=== PATIENT | male | born 1995 | race Caucasian/White ===

== ENCOUNTER 2019-03-21 14:51 | Emergency (ER) | payer MEDICAID ==
[~2019-03-21] VITALS: Ht 170.2 cm; Wt 92.0 kg
[2019-03-21 16:34] LABS: BASOPHILS % (AUTO) 0.5 % (0-1); EOSINOPHILS # (AUTO) 0.1 X10'3 (0-0.9); EOSINOPHILS % (AUTO) 0.7 % (0-6); HEMATOCRIT 49.7 % (42.0-52.0); HEMOGLOBIN 17.2 g/dl (14.0-17.9); LYMPHOCYTES # (AUTO) 1.1 X10'3 (1.1-4.8); MEAN CORPUSCULAR HEMOGLOBIN 33.6 PG (27.0-31.0); MEAN CORPUSCULAR HGB CONC 34.5 g/dL (33.0-36.5); MEAN CORPUSCULAR VOLUME 97.5 FL (78-98); MONOCYTES # (AUTO) 0.6 X10'3 (0-0.9); MONOCYTES % (AUTO) 6.9 % (2-12); NEUTROPHILS # (AUTO) 6.4 X10'3 (1.8-7.7); NEUTROPHILS % (AUTO) 77.9 % (42-75); PLATELET COUNT 243 X10'3 (140-440); RED CELL DISTRIBUTION WIDTH 13.9 % (11.5-14.5); WHITE BLOOD COUNT 8.2 X10'3 (4.5-11.0)
[2019-03-21 16:42] LABS: ALANINE AMINOTRANSFERASE 336 U/L (12-78); ALBUMIN 4.4 G/DL (3.4-5.0); ALKALINE PHOSPHATASE 73 IU/L (46-116); ANION GAP 15 (8-16); ASPARTATE AMINO TRANSFERASE 143 U/L (10-37); BILIRUBIN,TOTAL 0.4 MG/DL (0.1-1.0); BLOOD UREA NITROGEN 9 MG/DL (7-18); BUN/CREATININE RATIO 9.3 (5.4-32.0); CALCIUM 9.1 MG/DL (8.5-10.1); CHLORIDE 106 MMOL/L (99-107); CREATININE 0.97 MG/DL (0.60-1.10); GLUCOSE 109 MG/DL (70-104); LIPASE 521 U/L (73-393); MAGNESIUM 2.1 MG/DL (1.5-2.4); POTASSIUM 4.1 MMOL/L (3.5-5.1); SODIUM 144 MMOL/L (135-145); TOTAL CARBON DIOXIDE 23.5 MMOL/L (24-32); TOTAL PROTEIN 8.6 G/DL (6.4-8.2); eGFR > 90 ML/MIN
[2019-03-21 17:49] VITALS: BP 144/91
== END 2019-03-21 17:51 | disposition home or self-care (01) ==
LOC: ER 14:52
DX: K85.20 Alcohol induced acute pancreatitis without necrosis or infection (principal); I10 Essential (primary) hypertension; R10.13 Epigastric pain; F17.200 Nicotine dependence, unspecified, uncomplicated
CPT/HCPCS: 36415; 71045; 80053; 83690; 83735; 84484; 85025; 93005; 99284

== ENCOUNTER 2019-03-22 10:13 | Emergency (ER) | payer MEDICAID | END 2019-03-22 10:26 | disposition left against medical advice (07) | LOC: ER 10:13 | DX: Z00.00 Encounter for general adult medical examination without abnormal findings (principal); Z53.21 Procedure and treatment not carried out due to patient leaving prior to being seen by health care provider ==

== ENCOUNTER 2019-09-30 07:28 | Inpatient (IN) | payer MEDICAID ==
[~2019-09-30] VITALS: Ht 170.2 cm; Wt 86.4 kg
[2019-09-30] MEDS ORDERED: normal saline 1000ML IV soln IVB ONE (07:50)
[2019-09-30] MEDS ORDERED: ondansetron/PF 4mg/2ml inj IV ONE (07:50)
[2019-09-30] MEDS ORDERED: morphine 4 MG/ML inj SYRINge IV ONE (08:10)
[2019-09-30 08:21] LABS: BASOPHILS % (AUTO) 0.2 % (0-1); EOSINOPHILS % (AUTO) 0 % (0-6); HEMATOCRIT 48.5 % (42.0-52.0); HEMOGLOBIN 16.7 g/dl (14.0-17.9); LYMPHOCYTES # (AUTO) 0.4 X10'3 (1.1-4.8); LYMPHOCYTES % (AUTO) 2.7 % (21-51); MEAN CORPUSCULAR HEMOGLOBIN 32.4 PG (27.0-31.0); MEAN CORPUSCULAR HGB CONC 34.4 g/dL (33.0-36.5); MEAN CORPUSCULAR VOLUME 94.1 FL (78-98); MEAN PLATELET VOLUME 8.5 FL (7.4-10.4); MONOCYTES # (AUTO) 0.9 X10'3 (0-0.9); MONOCYTES % (AUTO) 5.7 % (2-12); NEUTROPHILS # (AUTO) 13.6 X10'3 (1.8-7.7); NEUTROPHILS % (AUTO) 91.4 % (42-75); PLATELET COUNT 214 X10'3 (140-440); RED BLOOD COUNT 5.15 X10'6 (4.70-6.10); RED CELL DISTRIBUTION WIDTH 14.7 % (11.5-14.5); WHITE BLOOD COUNT 14.9 X10'3 (4.5-11.0)
[2019-09-30] MEDS: morphine 4 MG/ML inj SYRINge IV PRN ×2 (08:21→08:48)
[2019-09-30 08:29] LABS: ALANINE AMINOTRANSFERASE 303 U/L (12-78); ALBUMIN 4.2 G/DL (3.4-5.0); ALBUMIN/GLOBULIN RATIO 1.1 (1.1-1.5); ALKALINE PHOSPHATASE 101 IU/L (46-116); ANION GAP 13 (8-16); ASPARTATE AMINO TRANSFERASE 134 U/L (10-37); BILIRUBIN,TOTAL 2.2 MG/DL (0.1-1.0); BLOOD UREA NITROGEN 8 MG/DL (7-18); BUN/CREATININE RATIO 8.7 (5.4-32.0); CHLORIDE 102 MMOL/L (99-107); CREATININE 0.92 MG/DL (0.60-1.10); GLUCOSE 152 MG/DL (70-104); POTASSIUM 3.9 MMOL/L (3.5-5.1); SODIUM 139 MMOL/L (135-145); TOTAL CARBON DIOXIDE 24.5 MMOL/L (24-32); eGFR > 90 ML/MIN
[2019-09-30 08:42] LABS: LIPASE 6496 U/L (73-393)
[2019-09-30] MEDS ORDERED: NO HOME MEDS (10:04)
[2019-09-30] MEDS ORDERED: fentaNYL/PF 50MCG/1 ML 2ML syringe IV ONE (10:15)
[2019-09-30] MEDS ORDERED: morphine 2 MG/ML inj. syringe IV PRN (10:25)
[2019-09-30] MEDS ORDERED: acetaminophen 325mg tablet PO PRN ×2 (10:25)
[2019-09-30] MEDS ORDERED: bisacodyl 10mg suppository rectal RC PRN (10:25)
[2019-09-30] MEDS ORDERED: magnesium Cl slow-release 64mg tablet PO PRN (10:25)
[2019-09-30] MEDS ORDERED: dextrose 50%-water 50ml dispensing syringe IV PRN (10:25)
[2019-09-30] MEDS ORDERED: mag hydrox/Alum hydrox/simeth 30ml oral suspension PO PRN (10:25)
[2019-09-30] MEDS ORDERED: diphenhydrAMINE 25mg capsule PO PRN (10:25)
[2019-09-30] MEDS ORDERED: metoclopramide 5 mg/ml inj IV PRN (10:25)
[2019-09-30] MEDS ORDERED: magnesium 2GM in 50ml NS 50 ML IV PRN (10:25)
[2019-09-30] MEDS ORDERED: thiamine 100mg/ml 2ml inj. IV ONE (10:25)
[2019-09-30] MEDS ORDERED: magnesium 4gm in 100ml NS 100 ML IV PRN (10:25)
[2019-09-30] MEDS ORDERED: acetaminophen 650mg rectal suppository RC PRN (10:25)
[2019-09-30] MEDS ORDERED: haloperidol lactate 5mg/ml inj IM PRN (10:25)
[2019-09-30] MEDS ORDERED: potassium Cl 20 mEq SR tablet PO PRN ×2 (10:25)
[2019-09-30] MEDS ORDERED: haloperidol 5mg tablet PO PRN (10:25)
[2019-09-30] MEDS ORDERED: potassium CL 10mEq/100ml bag 100 ML IV PRN (10:25)
[2019-09-30] MEDS ORDERED: magnesium hydroxide 30ml (MOM) UD suspension PO PRN (10:25)
[2019-09-30 10:35] LABS: ETHANOL < 0.010 GM/DL (0.0-0.010)
[2019-09-30] MEDS: dextrose 5%-normal saline 1,000 ML IV SCH ×2 (10:51→18:43)
[2019-09-30 10:55] LABS: URINE AMPHETAMINE SCREEN NEGATIVE (Neg); URINE BARBITUATE SCREEN NEGATIVE (Neg); URINE BENZODIAZEPINES SCREEN NEGATIVE (Neg); URINE CANNABINOID SCREEN NEGATIVE (Neg); URINE COCAINE SCREEN NEGATIVE (Neg); URINE METHADONE SCREEN NEGATIVE (Neg); URINE OPIATE SCREEN POSITIVE (Neg); URINE PHENCYCLIDINE SCREEN NEGATIVE (Neg)
[2019-09-30] MEDS ORDERED: hydrALAZINE 20mg/ml inj. IV PRN (11:15)
[2019-09-30] MEDS ORDERED: hydrALAZINE 20mg/ml inj. IV ONE (11:15)
[2019-09-30 11:30] LABS: CLARITY,URINE TURBID (Clear); COLOR,URINE AMBER (Yellow); GLUCOSE, URINE NEGATIVE (Neg); KETONES,URINE 15 mg/dl (Neg); LEUKOCYTE ESTERASE ,URINE NEGATIVE (Neg); NITRITES, URINE POSITIVE (Neg); OCCULT BLOOD,URINE NEGATIVE (Neg); PH,URINE 6.5 (4.8-8.0); PROTEIN,URINE 100 mg/dl (Neg)
--- NOTE | 2019-09-30 11:34 | NUR ---
Notified Whitney WEBB regarding patients blood pressure reduction to 143/95 mmHg in the right upper arm after hydralazine IVP of 20 mg. Stated that she would let patients primary RN know when back from break.
[2019-09-30 11:38] LABS: UA COLLECTION TYPE VOIDED
[2019-09-30 11:44] LABS: AMORPHOUS URATES 4+
[2019-09-30 11:45] LABS: MUCUS STRANDS MANY /LPF (Neg); SQUAMOUS EPITHELIAL CELL,UR FEW /LPF (FEW)
[2019-09-30 11:47] LABS: BACTERIA,URINE FEW /HPF (Neg); RBC,URINE 0-2 /HPF (0-2); WBC,URINE 0-4 /HPF (0-4)
[2019-09-30 11:55] VITALS: BP 152/88
[2019-09-30] MEDS: morphine 2 MG/ML inj. syringe IV PRN ×2 (12:45→18:47)
[2019-09-30] MEDS ORDERED: nicotine 14mg patch - 24hr TD ONE (14:20)
[2019-09-30] MEDS: HYDROcodone/acetaminophen 10/325mg tab PO PRN ×2 (15:05→21:22)
[2019-09-30] MEDS: LORazepam 2 mg/ml vial IV PRN ×2 (16:15→21:23)
--- NOTE | 2019-09-30 18:42 | NUR ---
Problems reprioritized. Patient report given, questions answered & plan of care reviewed with MIKE MCKEON RN.
--- NOTE | 2019-09-30 18:45 | NUR ---
Patient in room [facility]. I have received report from RINA WEBB and had the opportunity to ask questions and assume patient care.
[2019-09-30 19:40] VITALS: BP 151/101
[2019-09-30] MEDS: K and/or MAG REPLACEMENT MC SCH (20:00)
[2019-09-30] MEDS: heparin, porcine 5000 units/ml vial SQ SCH (21:26)
[2019-10-01] VITALS: BP 133/90
[2019-10-01] MEDS: dextrose 5%-normal saline 1,000 ML IV SCH ×3 (02:14→18:25)
[2019-10-01] MEDS: HYDROcodone/acetaminophen 10/325mg tab PO PRN ×3 (03:00→16:25)
[2019-10-01] MEDS: LORazepam 2 mg/ml vial IV PRN ×6 (03:05→20:38)
[2019-10-01 06:07] LABS: BASOPHILS % (AUTO) 0.3 % (0-1); EOSINOPHILS # (AUTO) 0.2 X10'3 (0-0.9); EOSINOPHILS % (AUTO) 2.5 % (0-6); HEMATOCRIT 43.1 % (42.0-52.0); HEMOGLOBIN 14.8 g/dl (14.0-17.9); MEAN CORPUSCULAR HEMOGLOBIN 32.9 PG (27.0-31.0); MEAN CORPUSCULAR HGB CONC 34.2 g/dL (33.0-36.5); MEAN CORPUSCULAR VOLUME 96.1 FL (78-98); MEAN PLATELET VOLUME 8.7 FL (7.4-10.4); MONOCYTES # (AUTO) 0.6 X10'3 (0-0.9); MONOCYTES % (AUTO) 7.4 % (2-12); NEUTROPHILS # (AUTO) 6.8 X10'3 (1.8-7.7); NEUTROPHILS % (AUTO) 78.8 % (42-75); PLATELET COUNT 143 X10'3 (140-440); RED BLOOD COUNT 4.49 X10'6 (4.70-6.10); RED CELL DISTRIBUTION WIDTH 15.2 % (11.5-14.5); WHITE BLOOD COUNT 8.7 X10'3 (4.5-11.0)
[2019-10-01 06:32] LABS: ALANINE AMINOTRANSFERASE 182 U/L (12-78); ALBUMIN 3.1 G/DL (3.4-5.0); ALKALINE PHOSPHATASE 66 IU/L (46-116); AMYLASE 460 U/L (25-115); ANION GAP 8 (8-16); ASPARTATE AMINO TRANSFERASE 70 U/L (10-37); BILIRUBIN,TOTAL 1.2 MG/DL (0.1-1.0); BLOOD UREA NITROGEN 5 MG/DL (7-18); CHLORIDE 107 MMOL/L (99-107); CHOL/HDL RATIO 5.3 (0.00-4.99); CHOLESTEROL 147 MG/DL (0-200); CREATININE 0.83 MG/DL (0.60-1.10); GLUCOSE 106 MG/DL (70-104); HDL CHOLESTEROL 28 MG/DL (35-60); LDL CHOLESTEROL 88 MG/DL (50-100); MAGNESIUM 1.9 MG/DL (1.5-2.4); PHOSPHORUS 2.3 MG/DL (2.3-4.5); POTASSIUM 3.4 MMOL/L (3.5-5.1); SODIUM 141 MMOL/L (135-145); TOTAL CARBON DIOXIDE 26.2 MMOL/L (24-32); TOTAL PROTEIN 6.2 G/DL (6.4-8.2); TRIGLYCERIDES 146 MG/DL (20-135); eGFR > 90 ML/MIN
--- NOTE | 2019-10-01 06:34 | NUR ---
Problems reprioritized. Patient report given, questions answered & plan of care reviewed with RINA WEBB.
--- NOTE | 2019-10-01 06:45 | NUR ---
Patient in room [facility]A. I have received report from MIKE MCKEON RN and had the opportunity to ask questions and assume patient care.
[2019-10-01 06:50] LABS: LIPASE 6297 U/L (73-393)
[2019-10-01] MEDS: morphine 2 MG/ML inj. syringe IV PRN ×3 (07:23→23:30)
[2019-10-01 07:31] VITALS: BP 154/93
[2019-10-01] MEDS: K and/or MAG REPLACEMENT MC SCH ×2 (08:00→20:00)
[2019-10-01] MEDS: nicotine 14mg patch - 24hr TD SCH (08:14)
[2019-10-01 11:00] VITALS: BP 145/75
[2019-10-01] MEDS: multivitamins, therapeutics tablet PO SCH (11:19)
[2019-10-01] MEDS: folic acid 1mg tablet PO SCH (11:19)
[2019-10-01] MEDS: heparin, porcine 5000 units/ml vial SQ SCH ×2 (11:19→19:44)
[2019-10-01] MEDS: thiamine 100mg tablet PO SCH (11:19)
[2019-10-01] MEDS: pantoprazole 40 MG vial IV SCH (11:47)
[2019-10-01] MEDS: CefTRIAXone/D5W-Rocephin 1gm 50 ML IV SCH (11:48)
--- NOTE | 2019-10-01 15:30 | NUR ---
Malnutrition Consult: Pt admit w/ acute pancreatitis secondary to etoh receiving thiamin, folic, MVI. NPO at this time okay to have ice chips. Pt unable to wake from sleep during RD visit; written pancreatitis ed w/ RD contact information left at bedside. Pt has normal strength, no edema/wounds, appears visibly well-nourished during RD visit. At this time pt does not meet minimum malnutrition criteria. Will continue to monitor. Addendum: 10/01/19 at [address] Amended: Links added.
--- NOTE | 2019-10-01 18:00 | NUR ---
Patient in room [facility]. I have received report from Laura WEBB and had the opportunity to ask questions and assume patient care.
--- NOTE | 2019-10-01 18:43 | NUR ---
Problems reprioritized. Patient report given, questions answered & plan of care reviewed with JON SAAB.
[2019-10-01 19:37] VITALS: BP 134/87
[2019-10-01] MEDS: potassium CL 10mEq/100ml bag 100 ML IV PRN ×2 (20:04→22:36)
[2019-10-02] VITALS: BP 119/80
[2019-10-02] MEDS: potassium CL 10mEq/100ml bag 100 ML IV PRN ×2 (00:04→01:48)
[2019-10-02] MEDS: LORazepam 2 mg/ml vial IV PRN ×2 (00:52→09:36)
[2019-10-02] MEDS: dextrose 5%-normal saline 1,000 ML IV SCH ×2 (05:11→12:31)
[2019-10-02 05:21] LABS: BASOPHILS % (AUTO) 0.5 % (0-1); EOSINOPHILS # (AUTO) 0.3 X10'3 (0-0.9); EOSINOPHILS % (AUTO) 4.4 % (0-6); HEMATOCRIT 41.9 % (42.0-52.0); HEMOGLOBIN 14.3 g/dl (14.0-17.9); LYMPHOCYTES # (AUTO) 1.2 X10'3 (1.1-4.8); LYMPHOCYTES % (AUTO) 18.5 % (21-51); MEAN CORPUSCULAR HEMOGLOBIN 32.7 PG (27.0-31.0); MEAN CORPUSCULAR HGB CONC 34.2 g/dL (33.0-36.5); MEAN CORPUSCULAR VOLUME 95.6 FL (78-98); MEAN PLATELET VOLUME 8.6 FL (7.4-10.4); MONOCYTES # (AUTO) 0.6 X10'3 (0-0.9); MONOCYTES % (AUTO) 9.1 % (2-12); NEUTROPHILS # (AUTO) 4.2 X10'3 (1.8-7.7); NEUTROPHILS % (AUTO) 67.5 % (42-75); PLATELET COUNT 159 X10'3 (140-440); RED BLOOD COUNT 4.38 X10'6 (4.70-6.10); RED CELL DISTRIBUTION WIDTH 14.9 % (11.5-14.5); WHITE BLOOD COUNT 6.3 X10'3 (4.5-11.0)
[2019-10-02 05:49] LABS: ALANINE AMINOTRANSFERASE 159 U/L (12-78); ALBUMIN 3.1 G/DL (3.4-5.0); ALBUMIN/GLOBULIN RATIO 0.9 (1.1-1.5); ALKALINE PHOSPHATASE 66 IU/L (46-116); AMYLASE 193 U/L (25-115); ANION GAP 7 (8-16); ASPARTATE AMINO TRANSFERASE 76 U/L (10-37); BLOOD UREA NITROGEN 5 MG/DL (7-18); BUN/CREATININE RATIO 6.2 (5.4-32.0); CALCIUM 8.6 MG/DL (8.5-10.1); CHLORIDE 104 MMOL/L (99-107); CREATININE 0.81 MG/DL (0.60-1.10); GLUCOSE 95 MG/DL (70-104); MAGNESIUM 1.9 MG/DL (1.5-2.4); PHOSPHORUS 2.9 MG/DL (2.3-4.5); POTASSIUM 3.7 MMOL/L (3.5-5.1); SODIUM 138 MMOL/L (135-145); TOTAL CARBON DIOXIDE 26.9 MMOL/L (24-32); TOTAL PROTEIN 6.7 G/DL (6.4-8.2); eGFR > 90 ML/MIN
[2019-10-02 06:23] LABS: LIPASE 2396 U/L (73-393)
--- NOTE | 2019-10-02 06:32 | NUR ---
Problems reprioritized. Patient report given, questions answered & plan of care reviewed with Leighann WEBB.
--- NOTE | 2019-10-02 06:37 | NUR ---
Patient in room [facility]. I have received report from nicolasa WEBB and had the opportunity to ask questions and assume patient care.
[2019-10-02 07:00] VITALS: BP 144/100
[2019-10-02] MEDS: CefTRIAXone/D5W-Rocephin 1gm 50 ML IV SCH (07:08)
[2019-10-02] MEDS: pantoprazole 40 MG vial IV SCH (07:08)
[2019-10-02] MEDS: thiamine 100mg tablet PO SCH (07:08)
[2019-10-02] MEDS: folic acid 1mg tablet PO SCH (07:08)
[2019-10-02] MEDS: morphine 2 MG/ML inj. syringe IV PRN ×4 (07:09→20:45)
[2019-10-02] MEDS: multivitamins, therapeutics tablet PO SCH (07:09)
[2019-10-02] MEDS: heparin, porcine 5000 units/ml vial SQ SCH ×2 (07:22→19:03)
[2019-10-02] MEDS: nicotine 14mg patch - 24hr TD SCH (07:28)
[2019-10-02 07:30] VITALS: BP 129/88
[2019-10-02] MEDS: K and/or MAG REPLACEMENT MC SCH ×2 (08:00→20:00)
[2019-10-02] MEDS: HYDROcodone/acetaminophen 10/325mg tab PO PRN ×4 (10:06→23:19)
--- NOTE | 2019-10-02 10:18 | NUR ---
patients B/P 144/100. medicated for pain rechecked, B/P 129/88
[2019-10-02] MEDS ORDERED: LORazepam 2 mg/ml vial IV PRN (10:25)
[2019-10-02 11:00] VITALS: BP 133/98
[2019-10-02] MEDS: ondansetron/PF 4mg/2ml inj IV PRN (11:45)
[2019-10-02] MEDS: LORazepam 1 MG tablet PO PRN ×2 (14:40→23:19)
--- NOTE | 2019-10-02 16:08 | NUR ---
patient commenced on clear lqd diet, felt nauseated and painful, following this. medicated and advised to go more slowly , and to stop if too painful will carefully monitor patients progress. Ativan given with effect for ETOH protocol. Morphine and norco for pain as per EMAR. with effect. Patient ambulating in hallway.
[2019-10-02 18:00] VITALS: BP 149/97
--- NOTE | 2019-10-02 18:00 | NUR ---
Patient in room [facility]. I have received report from Leighann WEBB and had the opportunity to ask questions and assume patient care.
--- NOTE | 2019-10-02 18:47 | NUR ---
Problems reprioritized. Patient report given, questions answered & plan of care reviewed with Kirsten WEBB.
--- NOTE | 2019-10-02 22:28 | NUR ---
Patient in room [facility]. I have received report from Kirsten WEBB and had the opportunity to ask questions and assume patient care.
--- NOTE | 2019-10-02 22:28 | NUR ---
Problems reprioritized. Patient report given, questions answered & plan of care reviewed with Joyce WEBB.
[2019-10-03] VITALS: BP 135/105
--- NOTE | 2019-10-03 01:07 | NUR ---
discussed last BM with pt. he stated he did not want MOM because he has not ate anything so he would not have a reason to have a BM. Addendum: 10/03/19 at 0110 by Joyce Ritchie RN Amended: Links added.
[2019-10-03] MEDS: dextrose 5%-normal saline 1,000 ML IV SCH ×2 (02:12→15:12)
[2019-10-03] MEDS: morphine 2 MG/ML inj. syringe IV PRN ×2 (02:15→07:29)
--- NOTE | 2019-10-03 02:17 | NUR ---
BG 102, MORPHINE GIVEN FOR PAIN. Addendum: 10/03/19 at 0218 by Young Curiel RN Amended: Links added.
[2019-10-03] MEDS: HYDROcodone/acetaminophen 10/325mg tab PO PRN ×5 (05:09→22:46)
[2019-10-03 05:39] LABS: BASOPHILS % (AUTO) 0.7 % (0-1); EOSINOPHILS # (AUTO) 0.3 X10'3 (0-0.9); HEMATOCRIT 42.2 % (42.0-52.0); HEMOGLOBIN 14.3 g/dl (14.0-17.9); LYMPHOCYTES # (AUTO) 1.3 X10'3 (1.1-4.8); LYMPHOCYTES % (AUTO) 26.7 % (21-51); MEAN CORPUSCULAR HEMOGLOBIN 32.9 PG (27.0-31.0); MEAN CORPUSCULAR HGB CONC 33.8 g/dL (33.0-36.5); MEAN CORPUSCULAR VOLUME 97.3 FL (78-98); MEAN PLATELET VOLUME 8.4 FL (7.4-10.4); MONOCYTES # (AUTO) 0.4 X10'3 (0-0.9); MONOCYTES % (AUTO) 8.8 % (2-12); NEUTROPHILS % (AUTO) 58.8 % (42-75); PLATELET COUNT 175 X10'3 (140-440); RED BLOOD COUNT 4.34 X10'6 (4.70-6.10); RED CELL DISTRIBUTION WIDTH 14.9 % (11.5-14.5); WHITE BLOOD COUNT 5.1 X10'3 (4.5-11.0)
[2019-10-03 06:07] LABS: ALANINE AMINOTRANSFERASE 185 U/L (12-78); ALBUMIN 3.1 G/DL (3.4-5.0); ALBUMIN/GLOBULIN RATIO 0.9 (1.1-1.5); ALKALINE PHOSPHATASE 66 IU/L (46-116); AMYLASE 97 U/L (25-115); ANION GAP 7 (8-16); ASPARTATE AMINO TRANSFERASE 140 U/L (10-37); BILIRUBIN,TOTAL 0.7 MG/DL (0.1-1.0); BLOOD UREA NITROGEN 6 MG/DL (7-18); BUN/CREATININE RATIO 6.5 (5.4-32.0); CALCIUM 8.2 MG/DL (8.5-10.1); CHLORIDE 107 MMOL/L (99-107); CREATININE 0.92 MG/DL (0.60-1.10); GLUCOSE 101 MG/DL (70-104); LIPASE 1338 U/L (73-393); PHOSPHORUS 4.4 MG/DL (2.3-4.5); POTASSIUM 4.1 MMOL/L (3.5-5.1); SODIUM 142 MMOL/L (135-145); TOTAL CARBON DIOXIDE 28.1 MMOL/L (24-32); TOTAL PROTEIN 6.6 G/DL (6.4-8.2); eGFR > 90 ML/MIN
--- NOTE | 2019-10-03 06:34 | NUR ---
Patient in room [facility]. I have received report from Carly WEBB and had the opportunity to ask questions and assume patient care.
[2019-10-03 07:00] VITALS: BP 155/97
[2019-10-03] MEDS: K and/or MAG REPLACEMENT MC SCH ×2 (07:23→20:00)
[2019-10-03] MEDS: multivitamins, therapeutics tablet PO SCH (07:28)
[2019-10-03] MEDS: nicotine 14mg patch - 24hr TD SCH (07:28)
[2019-10-03] MEDS: pantoprazole 40 MG vial IV SCH (07:28)
[2019-10-03] MEDS: folic acid 1mg tablet PO SCH (07:28)
[2019-10-03] MEDS: thiamine 100mg tablet PO SCH (07:28)
[2019-10-03] MEDS: CefTRIAXone/D5W-Rocephin 1gm 50 ML IV SCH (07:28)
[2019-10-03] MEDS: heparin, porcine 5000 units/ml vial SQ SCH ×2 (07:29→19:23)
[2019-10-03] MEDS: LORazepam 1 MG tablet PO PRN ×4 (07:34→22:46)
[2019-10-03 11:00] VITALS: BP 143/95
[2019-10-03 18:00] VITALS: BP 145/91
--- NOTE | 2019-10-03 18:15 | NUR ---
Patient in room [facility]. I have received report from Carly WEBB and had the opportunity to ask questions and assume patient care.
--- NOTE | 2019-10-03 18:39 | NUR ---
PAGER ID: [phone] MESSAGE: Carly-Surg [phone] Re: Rosendo CarrascoA Can we get Colace for patient has not had BM since 09/26 Refuses MOM Addendum: 10/03/19 at 1844 by Carly Gaffney RN Received orders from Dr Montejo for Colace 100mg PO BID and a one time dose of dulcolax suppository. Dr Montejo also aware patient nauseated after eating Full liquid diet.
[2019-10-03] MEDS ORDERED: bisacodyl 10mg suppository rectal RC STA (18:40)
[2019-10-03] MEDS: ondansetron/PF 4mg/2ml inj IV PRN (18:41)
--- NOTE | 2019-10-03 19:00 | NUR ---
Problems reprioritized. Patient report given, questions answered & plan of care reviewed with Kirsten WEBB.
[2019-10-03] MEDS: docusate sod 100mg capsule PO SCH (19:23)
[2019-10-04] VITALS: BP 142/94
[2019-10-04] MEDS: HYDROcodone/acetaminophen 10/325mg tab PO PRN ×3 (04:38→13:11)
[2019-10-04] MEDS: LORazepam 1 MG tablet PO PRN ×2 (04:38→10:02)
[2019-10-04 05:09] LABS: BASOPHILS % (AUTO) 0.8 % (0-1); EOSINOPHILS # (AUTO) 0.2 X10'3 (0-0.9); EOSINOPHILS % (AUTO) 4.1 % (0-6); HEMATOCRIT 44.5 % (42.0-52.0); HEMOGLOBIN 15.1 g/dl (14.0-17.9); LYMPHOCYTES # (AUTO) 1.3 X10'3 (1.1-4.8); LYMPHOCYTES % (AUTO) 26.6 % (21-51); MEAN CORPUSCULAR HGB CONC 33.9 g/dL (33.0-36.5); MEAN CORPUSCULAR VOLUME 97.3 FL (78-98); MONOCYTES # (AUTO) 0.4 X10'3 (0-0.9); MONOCYTES % (AUTO) 8.7 % (2-12); NEUTROPHILS # (AUTO) 2.9 X10'3 (1.8-7.7); NEUTROPHILS % (AUTO) 59.8 % (42-75); PLATELET COUNT 217 X10'3 (140-440); RED BLOOD COUNT 4.57 X10'6 (4.70-6.10); RED CELL DISTRIBUTION WIDTH 15.1 % (11.5-14.5); WHITE BLOOD COUNT 4.8 X10'3 (4.5-11.0)
[2019-10-04 06:01] LABS: ALANINE AMINOTRANSFERASE 245 U/L (12-78); ALBUMIN 3.4 G/DL (3.4-5.0); ALBUMIN/GLOBULIN RATIO 0.9 (1.1-1.5); ALKALINE PHOSPHATASE 83 IU/L (46-116); ANION GAP 8 (8-16); ASPARTATE AMINO TRANSFERASE 160 U/L (10-37); BILIRUBIN,TOTAL 0.8 MG/DL (0.1-1.0); BLOOD UREA NITROGEN 4 MG/DL (7-18); BUN/CREATININE RATIO 4.4 (5.4-32.0); CALCIUM 9.2 MG/DL (8.5-10.1); CHLORIDE 105 MMOL/L (99-107); GLUCOSE 93 MG/DL (70-104); MAGNESIUM 2.3 MG/DL (1.5-2.4); PHOSPHORUS 4.4 MG/DL (2.3-4.5); POTASSIUM 4.1 MMOL/L (3.5-5.1); SODIUM 142 MMOL/L (135-145); TOTAL CARBON DIOXIDE 28.9 MMOL/L (24-32); TOTAL PROTEIN 7.3 G/DL (6.4-8.2); eGFR > 90 ML/MIN
--- NOTE | 2019-10-04 06:26 | NUR ---
Problems reprioritized. Patient report given, questions answered & plan of care reviewed with Suyapa WEBB.
--- NOTE | 2019-10-04 06:26 | NUR ---
Patient in room [facility]. I have received report from Kirsten WEBB and had the opportunity to ask questions and assume patient care.
[2019-10-04 07:00] VITALS: BP 129/95
[2019-10-04] MEDS: K and/or MAG REPLACEMENT MC SCH ×2 (08:00→20:00)
[2019-10-04] MEDS: nicotine 14mg patch - 24hr TD SCH (08:48)
[2019-10-04] MEDS: thiamine 100mg tablet PO SCH (08:48)
[2019-10-04] MEDS: multivitamins, therapeutics tablet PO SCH (08:49)
[2019-10-04] MEDS: folic acid 1mg tablet PO SCH (08:49)
[2019-10-04] MEDS: docusate sod 100mg capsule PO SCH ×2 (08:49→20:31)
[2019-10-04] MEDS: pantoprazole 40 MG vial IV SCH (08:49)
[2019-10-04] MEDS: heparin, porcine 5000 units/ml vial SQ SCH ×2 (08:50→20:32)
[2019-10-04] MEDS: CefTRIAXone/D5W-Rocephin 1gm 50 ML IV SCH (08:51)
[2019-10-04 09:33] LABS: HIV ANTIBODY 1&2 RAPID NON-REACTIVE (Neg)
[2019-10-04] MEDS ORDERED: LORazepam 2 mg/ml vial IV PRN (10:25)
[2019-10-04] MEDS ORDERED: LORazepam 1 MG tablet PO PRN (10:25)
[2019-10-04 11:00] VITALS: BP 123/83
[2019-10-04 11:19] LABS: LIPASE 1095 U/L (73-393)
[2019-10-04] MEDS: dextrose 5%-normal saline 1,000 ML IV SCH ×2 (13:11→23:51)
[2019-10-04 18:00] VITALS: BP 122/82
[2019-10-04] MEDS: HYDROcodone/acetaminophen 5mg/325mg tablet PO PRN ×2 (18:02→22:36)
--- NOTE | 2019-10-04 18:31 | NUR ---
Problems reprioritized. Patient report given, questions answered & plan of care reviewed with Joyce WEBB.
--- NOTE | 2019-10-04 18:42 | NUR ---
Patient in room [facility]. I have received report from Suyapa WEBB and had the opportunity to ask questions and assume patient care.
[2019-10-05] VITALS: BP 125/77
[2019-10-05] MEDS: dextrose 5%-normal saline 1,000 ML IV SCH (02:27)
[2019-10-05] MEDS: HYDROcodone/acetaminophen 5mg/325mg tablet PO PRN ×2 (05:13→09:43)
[2019-10-05 05:46] LABS: ALANINE AMINOTRANSFERASE 240 U/L (12-78); ALBUMIN 3.2 G/DL (3.4-5.0); ALBUMIN/GLOBULIN RATIO 0.9 (1.1-1.5); ALKALINE PHOSPHATASE 74 IU/L (46-116); ANION GAP 10 (8-16); ASPARTATE AMINO TRANSFERASE 125 U/L (10-37); BILIRUBIN,TOTAL 0.4 MG/DL (0.1-1.0); BLOOD UREA NITROGEN 7 MG/DL (7-18); BUN/CREATININE RATIO 7.3 (5.4-32.0); CALCIUM 8.7 MG/DL (8.5-10.1); CHLORIDE 105 MMOL/L (99-107); CREATININE 0.96 MG/DL (0.60-1.10); GLUCOSE 114 MG/DL (70-104); LIPASE 750 U/L (73-393); MAGNESIUM 2.1 MG/DL (1.5-2.4); PHOSPHORUS 3.8 MG/DL (2.3-4.5); SODIUM 140 MMOL/L (135-145); TOTAL CARBON DIOXIDE 25.2 MMOL/L (24-32); TOTAL PROTEIN 6.9 G/DL (6.4-8.2); eGFR > 90 ML/MIN
[2019-10-05 06:22] LABS: BASOPHILS % (AUTO) 0.5 % (0-1); EOSINOPHILS # (AUTO) 0.2 X10'3 (0-0.9); EOSINOPHILS % (AUTO) 3.7 % (0-6); HEMATOCRIT 42.6 % (42.0-52.0); HEMOGLOBIN 14.4 g/dl (14.0-17.9); LYMPHOCYTES # (AUTO) 0.9 X10'3 (1.1-4.8); LYMPHOCYTES % (AUTO) 16.6 % (21-51); MEAN CORPUSCULAR HEMOGLOBIN 32.7 PG (27.0-31.0); MEAN CORPUSCULAR HGB CONC 33.8 g/dL (33.0-36.5); MEAN CORPUSCULAR VOLUME 96.7 FL (78-98); MEAN PLATELET VOLUME 8.2 FL (7.4-10.4); MONOCYTES # (AUTO) 0.6 X10'3 (0-0.9); NEUTROPHILS # (AUTO) 3.6 X10'3 (1.8-7.7); NEUTROPHILS % (AUTO) 68.2 % (42-75); PLATELET COUNT 240 X10'3 (140-440); RED BLOOD COUNT 4.41 X10'6 (4.70-6.10); RED CELL DISTRIBUTION WIDTH 14.7 % (11.5-14.5); WHITE BLOOD COUNT 5.3 X10'3 (4.5-11.0)
--- NOTE | 2019-10-05 06:33 | NUR ---
Patient in room [facility]. I have received report from JON Cook and had the opportunity to ask questions and assume patient care.
--- NOTE | 2019-10-05 06:36 | NUR ---
Problems reprioritized. Patient report given, questions answered & plan of care reviewed with Jesus RN.
[2019-10-05 07:44] VITALS: BP 137/89
[2019-10-05] MEDS: folic acid 1mg tablet PO SCH (07:47)
[2019-10-05] MEDS: thiamine 100mg tablet PO SCH (07:47)
[2019-10-05] MEDS: docusate sod 100mg capsule PO SCH (07:47)
[2019-10-05] MEDS: multivitamins, therapeutics tablet PO SCH (07:47)
[2019-10-05] MEDS: CefTRIAXone/D5W-Rocephin 1gm 50 ML IV SCH (07:47)
[2019-10-05] MEDS: pantoprazole 40 MG vial IV SCH (07:47)
[2019-10-05] MEDS: nicotine 14mg patch - 24hr TD SCH (07:48)
[2019-10-05] MEDS: heparin, porcine 5000 units/ml vial SQ SCH (07:49)
[2019-10-05] MEDS: K and/or MAG REPLACEMENT MC SCH (08:00)
[2019-10-05 08:11] LABS: HBSAG SCREEN Negative (Negative); HEP A AB, IGM Negative (Negative); HEPATITIS C ANTIBODY <0.1 s/co ratio (0.0-0.9)
[2019-10-05] MEDS ORDERED: FOLI0.4T2 PO (10:44)
[2019-10-05] MEDS ORDERED: LIPA1CAP18 PO (10:44)
[2019-10-05] MEDS ORDERED: MULT-25 PO (10:44)
[2019-10-05] MEDS ORDERED: PANT40TA4 PO (10:44)
[2019-10-05] MEDS ORDERED: CEFD300C3 PO (10:44)
[2019-10-05] MEDS ORDERED: THIA50TA10 PO (10:44)
[2019-10-05] MEDS ORDERED: DOCU100C40 PO (10:44)
[2019-10-05 12:00] VITALS: BP 125/83
[2019-10-05] MEDS ORDERED: HYDR-4383 PO (13:35)
--- NOTE | 2019-10-05 14:40 | NUR ---
Patient discharged home via family and taken from unit via wheelchair with x1 staff. patient alert, oriented and in no apparent distress at time of discharge. Patient took all belongings with him including discharge instructions.
== END 2019-10-05 14:35 | disposition home or self-care (01) | DRG 282 ==
LOC: ER 07:29 → ED HOLD 10:21 → SUR 3N 11:36
PROVIDERS: ADMIT Family Medicine; ATTEND Family Medicine
DX: K85.90 Acute pancreatitis without necrosis or infection, unspecified (principal); N39.0 Urinary tract infection, site not specified; F17.200 Nicotine dependence, unspecified, uncomplicated; R74.0 Nonspecific elevation of levels of transaminase and lactic acid dehydrogenase [LDH]; D72.829 Elevated white blood cell count, unspecified; K59.00 Constipation, unspecified; F10.10 Alcohol abuse, uncomplicated; Y90.9 Presence of alcohol in blood, level not specified; Z71.6 Tobacco abuse counseling
CPT/HCPCS: 36415; 70200; 76700; 80053; 80061; 80305; 80320; 81001; 82150; 82948; 83036; 83690; 83735; 84100; 84443; 85025; 86703; 86705; 86706; 86709; 86803; 87081; 87088; 87340; 96361; 96374; 96375; 99285; C9113; G0378; J0360; J0696; J1644; J2060; J2270; J2405; J3010; J3411; J3480; J7030; J7042

== ENCOUNTER 2019-11-26 08:46 | Inpatient (IN) | payer MEDICAID ==
[~2019-11-26] VITALS: Ht 170.2 cm; Wt 90.5 kg
[~2019-11-26 08:46] MED LIST: DOCU100C40 PO; HYDR-4383 PO; LIPA1CAP18 PO; MULT-25 PO; PANT40TA54 PO; THIA50TA10 PO
[2019-11-26 09:22] LABS: BASOPHILS # (AUTO) 0.1 X10'3 (0-0.2); BASOPHILS % (AUTO) 0.3 % (0-1); EOSINOPHILS % (AUTO) 0.1 % (0-6); HEMATOCRIT 49.2 % (42.0-52.0); HEMOGLOBIN 16.9 g/dl (14.0-17.9); LYMPHOCYTES # (AUTO) 0.7 X10'3 (1.1-4.8); LYMPHOCYTES % (AUTO) 3.7 % (21-51); MEAN CORPUSCULAR HEMOGLOBIN 32.6 PG (27.0-31.0); MEAN CORPUSCULAR HGB CONC 34.3 g/dL (33.0-36.5); MEAN CORPUSCULAR VOLUME 94.8 FL (78-98); MEAN PLATELET VOLUME 8.3 FL (7.4-10.4); MONOCYTES # (AUTO) 0.8 X10'3 (0-0.9); MONOCYTES % (AUTO) 4.4 % (2-12); NEUTROPHILS # (AUTO) 16.2 X10'3 (1.8-7.7); NEUTROPHILS % (AUTO) 91.5 % (42-75); PLATELET COUNT 308 X10'3 (140-440); RED BLOOD COUNT 5.19 X10'6 (4.70-6.10); RED CELL DISTRIBUTION WIDTH 13.4 % (11.5-14.5); WHITE BLOOD COUNT 17.7 X10'3 (4.5-11.0)
[2019-11-26 09:41] LABS: ALANINE AMINOTRANSFERASE 159 U/L (12-78); ALBUMIN 4.5 G/DL (3.4-5.0); ALBUMIN/GLOBULIN RATIO 1.1 (1.1-1.5); ALKALINE PHOSPHATASE 75 IU/L (46-116); AMYLASE 363 U/L (25-115); ANION GAP 13 (8-16); ASPARTATE AMINO TRANSFERASE 47 U/L (10-37); BILIRUBIN,TOTAL 1.2 MG/DL (0.1-1.0); BLOOD UREA NITROGEN 12 MG/DL (7-18); BUN/CREATININE RATIO 15.8 (5.4-32.0); CALCIUM 9.6 MG/DL (8.5-10.1); CHLORIDE 99 MMOL/L (99-107); CREATININE 0.76 MG/DL (0.60-1.10); GLUCOSE 119 MG/DL (70-104); SODIUM 136 MMOL/L (135-145); TOTAL CARBON DIOXIDE 23.6 MMOL/L (24-32); TOTAL PROTEIN 8.7 G/DL (6.4-8.2); eGFR > 90 ML/MIN
[2019-11-26 09:49] LABS: LIPASE 4692 U/L (73-393)
--- NOTE | 2019-11-26 10:21 | NUR ---
pt sleeping laying on his right side , respirations even and unlabored.
[2019-11-26] MEDS ORDERED: ondansetron/PF 4mg/2ml inj IV ONE (10:25)
[2019-11-26] MEDS ORDERED: normal saline 1000ML IV soln IVB ONE (10:25)
[2019-11-26 10:42] LABS: ETHANOL < 0.010 GM/DL (0.0-0.010)
[2019-11-26] MEDS: morphine 4 MG/ML inj SYRINge IV PRN ×2 (10:45→11:28)
[2019-11-26] MEDS ORDERED: mag hydrox/Alum hydrox/simeth 30ml oral suspension PO PRN (11:10)
[2019-11-26] MEDS ORDERED: morphine 2 MG/ML inj. syringe IV PRN (11:10)
[2019-11-26] MEDS ORDERED: magnesium hydroxide 30ml (MOM) UD suspension PO PRN (11:10)
[2019-11-26] MEDS ORDERED: acetaminophen 325mg tablet PO PRN (11:10)
[2019-11-26] MEDS ORDERED: thiamine 100mg/ml 2ml inj. IV ONE (11:15)
[2019-11-26] MEDS ORDERED: dextrose 50%-water 50ml dispensing syringe IV PRN (11:15)
[2019-11-26] MEDS: normal saline 1000ml 1,000 ML IV SCH ×3 (11:32→22:00)
[2019-11-26 12:03] LABS: URINE AMPHETAMINE SCREEN NEGATIVE (Neg); URINE BARBITUATE SCREEN NEGATIVE (Neg); URINE BENZODIAZEPINES SCREEN NEGATIVE (Neg); URINE CANNABINOID SCREEN NEGATIVE (Neg); URINE COCAINE SCREEN NEGATIVE (Neg); URINE METHADONE SCREEN NEGATIVE (Neg); URINE OPIATE SCREEN POSITIVE (Neg); URINE PHENCYCLIDINE SCREEN NEGATIVE (Neg)
[2019-11-26] MEDS: LORazepam 2 mg/ml vial IV PRN ×4 (12:09→21:49)
[2019-11-26 12:12] VITALS: BP 155/96
[2019-11-26] MEDS ORDERED: thiamine inj. 100 MG in normal saline 100ml IV soln 100 ML IV ONE (12:35)
--- NOTE | 2019-11-26 12:39 | NUR ---
Patient in room [facility]. I have received report from ELEVATOR CONDUCTOR and had the opportunity to ask questions and assume patient care.
[2019-11-26] MEDS: morphine 2 MG/ML inj. syringe IV PRN ×3 (13:28→21:50)
[2019-11-26] MEDS ORDERED: NO HOME MEDS (13:29)
[2019-11-26] MEDS ORDERED: pneumococcal 23-VAL P-sac vacc 25 mcg/0.5ml vial IMVAC ONE (16:25)
--- NOTE | 2019-11-26 17:55 | NUR ---
patient mostly sleeping, medicated alternately with morphine and ativan for pain and anxiety. patient stated that he is back to drinking a pint of vodka a day. seen by Dr Tirado. . Voided 250mls since 1150hrs. stated that he voided in ED will continue to monitor output. patient stated that he was very dehydrated prior to coming here, mostly had been drinking .will continue to monitor.
--- NOTE | 2019-11-26 18:00 | NUR ---
Patient in room [facility]. I have received report from Leighann WEBB and had the opportunity to ask questions and assume patient care.
--- NOTE | 2019-11-26 18:40 | NUR ---
Problems reprioritized. Patient report given, questions answered & plan of care reviewed with nicolasa WEBB.
[2019-11-26] MEDS: heparin, porcine 5000 units/ml vial SQ SCH (19:36)
[2019-11-26 19:53] VITALS: BP 156/100
[2019-11-27] VITALS: BP 142/99
[2019-11-27] MEDS: normal saline 1000ml 1,000 ML IV SCH ×5 (03:01→19:38)
[2019-11-27] MEDS: morphine 2 MG/ML inj. syringe IV PRN (06:02)
[2019-11-27 06:11] LABS: BASOPHILS % (AUTO) 0.2 % (0-1); EOSINOPHILS # (AUTO) 0.1 X10'3 (0-0.9); EOSINOPHILS % (AUTO) 0.7 % (0-6); HEMATOCRIT 44.4 % (42.0-52.0); LYMPHOCYTES # (AUTO) 1.1 X10'3 (1.1-4.8); LYMPHOCYTES % (AUTO) 10.7 % (21-51); MEAN CORPUSCULAR HEMOGLOBIN 32.4 PG (27.0-31.0); MEAN CORPUSCULAR HGB CONC 33.8 g/dL (33.0-36.5); MEAN CORPUSCULAR VOLUME 95.7 FL (78-98); MEAN PLATELET VOLUME 8.6 FL (7.4-10.4); MONOCYTES # (AUTO) 0.7 X10'3 (0-0.9); MONOCYTES % (AUTO) 7.2 % (2-12); NEUTROPHILS # (AUTO) 8.5 X10'3 (1.8-7.7); NEUTROPHILS % (AUTO) 81.2 % (42-75); PLATELET COUNT 222 X10'3 (140-440); RED BLOOD COUNT 4.64 X10'6 (4.70-6.10); RED CELL DISTRIBUTION WIDTH 13.4 % (11.5-14.5); WHITE BLOOD COUNT 10.4 X10'3 (4.5-11.0)
--- NOTE | 2019-11-27 06:20 | NUR ---
Problems reprioritized. Patient report given, questions answered & plan of care reviewed with Leighann WEBB.
[2019-11-27 06:27] LABS: ALANINE AMINOTRANSFERASE 91 U/L (12-78); ALBUMIN 3.3 G/DL (3.4-5.0); ALBUMIN/GLOBULIN RATIO 0.9 (1.1-1.5); ALKALINE PHOSPHATASE 59 IU/L (46-116); ANION GAP 9 (8-16); ASPARTATE AMINO TRANSFERASE 26 U/L (10-37); BILIRUBIN,TOTAL 0.7 MG/DL (0.1-1.0); BLOOD UREA NITROGEN 10 MG/DL (7-18); BUN/CREATININE RATIO 15.2 (5.4-32.0); CALCIUM 8.4 MG/DL (8.5-10.1); CHLORIDE 104 MMOL/L (99-107); CREATININE 0.66 MG/DL (0.60-1.10); GLUCOSE 81 MG/DL (70-104); POTASSIUM 4.1 MMOL/L (3.5-5.1); SODIUM 138 MMOL/L (135-145); TOTAL CARBON DIOXIDE 24.8 MMOL/L (24-32); TOTAL PROTEIN 6.8 G/DL (6.4-8.2); eGFR > 90 ML/MIN
[2019-11-27 06:33] LABS: LIPASE 5612 U/L (73-393)
--- NOTE | 2019-11-27 06:53 | NUR ---
Patient in room [facility]. I have received report from nicolasa WEBB and had the opportunity to ask questions and assume patient care.
[2019-11-27 07:00] VITALS: BP 150/98
[2019-11-27] MEDS: heparin, porcine 5000 units/ml vial SQ SCH ×2 (07:14→19:19)
[2019-11-27] MEDS: ondansetron/PF 4mg/2ml inj IV PRN ×2 (07:14→19:21)
[2019-11-27] MEDS: LORazepam 2 mg/ml vial IV PRN ×6 (07:15→23:43)
[2019-11-27] MEDS ORDERED: HYDROmorphone inj. 0.5 MG/0.5 ML DISP.SYRIN IV PRN (09:15)
[2019-11-27] MEDS: HYDROmorphone 1 mg/ml syringe IV PRN ×4 (10:29→23:46)
[2019-11-27] MEDS: nicotine 14mg patch - 24hr TD SCH (10:32)
[2019-11-27 11:00] VITALS: BP 134/94
[2019-11-27] MEDS ORDERED: glucagon, human recombinant 1mg kit SUBCUT PRN (15:10)
[2019-11-27] MEDS ORDERED: dextrose 50%-water 50ml dispensing syringe IV PRN ×2 (15:10)
[2019-11-27] MEDS ORDERED: MESSAGE TO PHARMACY PO ONE (15:10)
[2019-11-27] MEDS ORDERED: dextrose ORAL solution 15 GM/59 ML bottle PO PRN ×2 (15:10)
--- NOTE | 2019-11-27 16:39 | NUR ---
patients blood sugar [address] devlin pageandrea as patient did not have hypoglycemic protocol. Protool ordered. Patient received 25mls dex 50, blood sugar 140. will continue to monitor. Atavan given x3 for anxiety and etoh withdrawal with effect. Dilaudid given for pain with effect. patient able to ambulate x3 in hallway.
--- NOTE | 2019-11-27 18:19 | NUR ---
Patient in room [facility]. I have received report from Leighann WEBB and had the opportunity to ask questions and assume patient care.
--- NOTE | 2019-11-27 18:20 | NUR ---
Problems reprioritized. Patient report given, questions answered & plan of care reviewed with Kirsten WEBB.
[2019-11-27 20:00] VITALS: BP 162/101
[2019-11-27] MEDS: insulin glargine (Lantus) pen - multi-dose SQ SCH (21:00)
[2019-11-27 21:28] VITALS: BP 145/92
--- NOTE | 2019-11-27 21:28 | NUR ---
patient bp was 162/101 gave pain medication and it went down to 145/92
[2019-11-28] VITALS: BP 138/91
[2019-11-28] MEDS: HYDROmorphone 1 mg/ml syringe IV PRN ×5 (04:48→22:31)
[2019-11-28] MEDS: LORazepam 2 mg/ml vial IV PRN ×4 (04:58→22:34)
[2019-11-28] MEDS: normal saline 1000ml 1,000 ML IV SCH ×5 (04:58→19:21)
[2019-11-28 05:25] LABS: ALANINE AMINOTRANSFERASE 85 U/L (12-78); ALBUMIN 3.2 G/DL (3.4-5.0); ALBUMIN/GLOBULIN RATIO 0.9 (1.1-1.5); ALKALINE PHOSPHATASE 54 IU/L (46-116); ANION GAP 6 (8-16); ASPARTATE AMINO TRANSFERASE 37 U/L (10-37); BILIRUBIN,TOTAL 0.8 MG/DL (0.1-1.0); BLOOD UREA NITROGEN 8 MG/DL (7-18); BUN/CREATININE RATIO 11.8 (5.4-32.0); CALCIUM 8.5 MG/DL (8.5-10.1); CHLORIDE 104 MMOL/L (99-107); CREATININE 0.68 MG/DL (0.60-1.10); GLUCOSE 74 MG/DL (70-104); SODIUM 138 MMOL/L (135-145); TOTAL CARBON DIOXIDE 28.4 MMOL/L (24-32); TOTAL PROTEIN 6.8 G/DL (6.4-8.2); eGFR > 90 ML/MIN
[2019-11-28 05:42] LABS: BASOPHILS % (AUTO) 0.5 % (0-1); EOSINOPHILS # (AUTO) 0.1 X10'3 (0-0.9); EOSINOPHILS % (AUTO) 1.5 % (0-6); HEMATOCRIT 43.4 % (42.0-52.0); LYMPHOCYTES # (AUTO) 1.3 X10'3 (1.1-4.8); MEAN CORPUSCULAR HGB CONC 34.7 g/dL (33.0-36.5); MEAN CORPUSCULAR VOLUME 95.3 FL (78-98); MEAN PLATELET VOLUME 8.4 FL (7.4-10.4); MONOCYTES # (AUTO) 0.7 X10'3 (0-0.9); MONOCYTES % (AUTO) 8.7 % (2-12); NEUTROPHILS # (AUTO) 5.9 X10'3 (1.8-7.7); NEUTROPHILS % (AUTO) 73.3 % (42-75); PLATELET COUNT 225 X10'3 (140-440); RED BLOOD COUNT 4.55 X10'6 (4.70-6.10); RED CELL DISTRIBUTION WIDTH 13.3 % (11.5-14.5); WHITE BLOOD COUNT 8.1 X10'3 (4.5-11.0)
--- NOTE | 2019-11-28 06:16 | NUR ---
Problems reprioritized. Patient report given, questions answered & plan of care reviewed with Alisia WEBB.
[2019-11-28 07:00] VITALS: BP 157/104
[2019-11-28] MEDS: heparin, porcine 5000 units/ml vial SQ SCH ×2 (08:02→19:15)
[2019-11-28] MEDS: nicotine 14mg patch - 24hr TD SCH (08:03)
[2019-11-28 09:29] LABS: LIPASE 1836 U/L (73-393)
[2019-11-28 09:45] VITALS: BP 140/100
[2019-11-28 09:46] VITALS: BP 150/100
--- NOTE | 2019-11-28 09:51 | NUR ---
PAGER ID: [phone] MESSAGE: DELANEY CARRANZA 360B Pt. BP 140/100 RA supine and 150/100 LA. Both are sarkis. NO BP meds. Did you want thiamine, multi-vi (banana bag)? Laure [id number]
--- NOTE | 2019-11-28 11:00 | NUR ---
Spoke with MD Desai while he was rounding on the floor. States he is not concerned about the pt.'s current diastolic. No new medications ordered.
[2019-11-28] MEDS: ondansetron/PF 4mg/2ml inj IV PRN ×2 (11:16→19:15)
[2019-11-28] MEDS: HYDROcodone/acetaminophen 5mg/325mg tablet PO PRN ×3 (11:16→20:57)
[2019-11-28] MEDS: multivitamins, therapeutics tablet PO SCH (12:18)
[2019-11-28] MEDS: folic acid 1mg tablet PO SCH (12:18)
[2019-11-28] MEDS: LORazepam 1 MG tablet PO PRN ×2 (12:18→18:32)
[2019-11-28 12:31] VITALS: BP 154/106
--- NOTE | 2019-11-28 16:15 | NUR ---
BLOOD GLUCOSE 69. GAVE PT 2 4 OZ APPLEJUICE. WILL RECHECK
[2019-11-28 18:00] VITALS: BP 153/103
--- NOTE | 2019-11-28 18:15 | NUR ---
Gave report to Carlos Mayfield.
[2019-11-28] MEDS: thiamine 100mg tablet PO SCH (19:15)
[2019-11-28] MEDS: insulin glargine (Lantus) pen - multi-dose SQ SCH (21:00)
[2019-11-29] VITALS: BP 147/104
[2019-11-29] MEDS: HYDROcodone/acetaminophen 5mg/325mg tablet PO PRN ×4 (01:37→16:36)
[2019-11-29] MEDS: LORazepam 2 mg/ml vial IV PRN ×2 (01:42→04:35)
[2019-11-29] MEDS: HYDROmorphone 1 mg/ml syringe IV PRN ×3 (04:35→13:59)
[2019-11-29] MEDS: normal saline 1000ml 1,000 ML IV SCH ×4 (04:38→20:18)
[2019-11-29 05:26] LABS: ALANINE AMINOTRANSFERASE 78 U/L (12-78); ALBUMIN 3.4 G/DL (3.4-5.0); ALBUMIN/GLOBULIN RATIO 0.9 (1.1-1.5); ALKALINE PHOSPHATASE 61 IU/L (46-116); ANION GAP 5 (8-16); ASPARTATE AMINO TRANSFERASE 39 U/L (10-37); BILIRUBIN,TOTAL 0.5 MG/DL (0.1-1.0); BLOOD UREA NITROGEN 5 MG/DL (7-18); BUN/CREATININE RATIO 6.7 (5.4-32.0); CHLORIDE 105 MMOL/L (99-107); CREATININE 0.75 MG/DL (0.60-1.10); GLUCOSE 90 MG/DL (70-104); LIPASE 1039 U/L (73-393); POTASSIUM 3.7 MMOL/L (3.5-5.1); SODIUM 140 MMOL/L (135-145); TOTAL CARBON DIOXIDE 30.1 MMOL/L (24-32); TOTAL PROTEIN 7.2 G/DL (6.4-8.2); eGFR > 90 ML/MIN
[2019-11-29 05:34] LABS: BASOPHILS % (AUTO) 0.7 % (0-1); EOSINOPHILS # (AUTO) 0.1 X10'3 (0-0.9); HEMATOCRIT 44.1 % (42.0-52.0); HEMOGLOBIN 15.1 g/dl (14.0-17.9); LYMPHOCYTES # (AUTO) 1.2 X10'3 (1.1-4.8); LYMPHOCYTES % (AUTO) 20.4 % (21-51); MEAN CORPUSCULAR HEMOGLOBIN 32.9 PG (27.0-31.0); MEAN CORPUSCULAR HGB CONC 34.2 g/dL (33.0-36.5); MEAN CORPUSCULAR VOLUME 95.9 FL (78-98); MEAN PLATELET VOLUME 8.3 FL (7.4-10.4); MONOCYTES # (AUTO) 0.5 X10'3 (0-0.9); MONOCYTES % (AUTO) 8.4 % (2-12); NEUTROPHILS % (AUTO) 68.5 % (42-75); PLATELET COUNT 246 X10'3 (140-440); RED CELL DISTRIBUTION WIDTH 13.5 % (11.5-14.5); WHITE BLOOD COUNT 5.8 X10'3 (4.5-11.0)
[2019-11-29 07:00] VITALS: BP 157/104
[2019-11-29] MEDS: folic acid 1mg tablet PO SCH (07:11)
[2019-11-29] MEDS: thiamine 100mg tablet PO SCH ×2 (07:11→19:42)
[2019-11-29] MEDS: multivitamins, therapeutics tablet PO SCH (07:12)
[2019-11-29] MEDS: heparin, porcine 5000 units/ml vial SQ SCH ×2 (07:12→19:42)
[2019-11-29] MEDS: nicotine 14mg patch - 24hr TD SCH (07:13)
[2019-11-29] MEDS: LORazepam 1 MG tablet PO PRN ×5 (09:12→19:56)
[2019-11-29] MEDS: ondansetron/PF 4mg/2ml inj IV PRN ×2 (09:18→16:35)
[2019-11-29 11:04] VITALS: BP 115/69
--- NOTE | 2019-11-29 13:24 | NUR ---
PAGER ID: [phone] MESSAGE: Jason Moctezuma wants to DC ALL IV pain meds. Would like to try oral Barry 10s - 2 tabs for severe pain 1 tab for mild pain. Can I have these orders? Laure [phone]
--- NOTE | 2019-11-29 14:58 | NUR ---
PAGER ID: [phone] MESSAGE: Are you still planning on discharging Jason Robbins? He tolerated his regular lunch meal. Laure [id number]
--- NOTE | 2019-11-29 18:18 | NUR ---
Gave report to Katarzyna WEBB.
--- NOTE | 2019-11-29 18:44 | NUR ---
Patient in room [facility]. I have received report from JON Kelsey and had the opportunity to ask questions and assume patient care.
[2019-11-29] MEDS: HYDROcodone/acetaminophen 10/325mg tab PO PRN (19:41)
[2019-11-29 19:50] VITALS: BP 162/100
[2019-11-29] MEDS: insulin glargine (Lantus) pen - multi-dose SQ SCH (21:00)
[2019-11-30 00:06] VITALS: BP_SYST 131
[2019-11-30] MEDS: HYDROcodone/acetaminophen 10/325mg tab PO PRN ×2 (03:34→08:27)
[2019-11-30] MEDS: LORazepam 1 MG tablet PO PRN ×2 (05:23→09:25)
[2019-11-30] MEDS: normal saline 1000ml 1,000 ML IV SCH (05:23)
[2019-11-30 05:25] LABS: ALANINE AMINOTRANSFERASE 78 U/L (12-78); ALBUMIN 3.3 G/DL (3.4-5.0); ALBUMIN/GLOBULIN RATIO 0.9 (1.1-1.5); ALKALINE PHOSPHATASE 62 IU/L (46-116); ANION GAP 7 (8-16); ASPARTATE AMINO TRANSFERASE 40 U/L (10-37); BILIRUBIN,TOTAL 0.3 MG/DL (0.1-1.0); BLOOD UREA NITROGEN 8 MG/DL (7-18); BUN/CREATININE RATIO 9.6 (5.4-32.0); CALCIUM 8.6 MG/DL (8.5-10.1); CHLORIDE 106 MMOL/L (99-107); CREATININE 0.83 MG/DL (0.60-1.10); GLUCOSE 107 MG/DL (70-104); LIPASE 732 U/L (73-393); POTASSIUM 3.9 MMOL/L (3.5-5.1); SODIUM 139 MMOL/L (135-145); TOTAL CARBON DIOXIDE 26.1 MMOL/L (24-32); TOTAL PROTEIN 6.9 G/DL (6.4-8.2); eGFR > 90 ML/MIN
--- NOTE | 2019-11-30 06:32 | NUR ---
Patient in room [facility]. I have received report from JON Eastman and had the opportunity to ask questions and assume patient care.
--- NOTE | 2019-11-30 06:35 | NUR ---
Problems reprioritized. Patient report given, questions answered & plan of care reviewed with JON Bowser.
[2019-11-30 06:39] LABS: BASOPHILS % (AUTO) 0.5 % (0-1); EOSINOPHILS # (AUTO) 0.2 X10'3 (0-0.9); EOSINOPHILS % (AUTO) 3.4 % (0-6); HEMATOCRIT 42.6 % (42.0-52.0); HEMOGLOBIN 14.6 g/dl (14.0-17.9); LYMPHOCYTES # (AUTO) 1.1 X10'3 (1.1-4.8); LYMPHOCYTES % (AUTO) 19.6 % (21-51); MEAN CORPUSCULAR HGB CONC 34.4 g/dL (33.0-36.5); MEAN PLATELET VOLUME 8.3 FL (7.4-10.4); MONOCYTES # (AUTO) 0.5 X10'3 (0-0.9); MONOCYTES % (AUTO) 9.2 % (2-12); NEUTROPHILS # (AUTO) 3.8 X10'3 (1.8-7.7); NEUTROPHILS % (AUTO) 67.3 % (42-75); PLATELET COUNT 272 X10'3 (140-440); RED BLOOD COUNT 4.43 X10'6 (4.70-6.10); RED CELL DISTRIBUTION WIDTH 13.5 % (11.5-14.5); WHITE BLOOD COUNT 5.6 X10'3 (4.5-11.0)
[2019-11-30 06:52] VITALS: BP 141/108
[2019-11-30] MEDS: multivitamins, therapeutics tablet PO SCH (08:25)
[2019-11-30] MEDS: folic acid 1mg tablet PO SCH (08:25)
[2019-11-30] MEDS: nicotine 14mg patch - 24hr TD SCH (08:25)
[2019-11-30] MEDS: heparin, porcine 5000 units/ml vial SQ SCH (08:25)
[2019-11-30] MEDS: thiamine 100mg tablet PO SCH (08:25)
[2019-11-30] MEDS ORDERED: HYDR-4383 PO (10:34)
[2019-11-30] MEDS ORDERED: THIA100T70 PO (10:34)
[2019-11-30 11:00] VITALS: BP 121/69
[2019-11-30] MEDS ORDERED: LORazepam 2 mg/ml vial IV PRN (11:15)
[2019-11-30] MEDS ORDERED: LORazepam 1 MG tablet PO PRN (11:15)
[2019-11-30] MEDS ORDERED: PROP10TA10 PO (11:54)
== END 2019-11-30 12:02 | disposition home or self-care (01) | DRG 282 ==
LOC: ER 08:47 → ED HOLD 11:10 → SUR 3N 11:51
PROVIDERS: ADMIT Family Medicine; ATTEND Family Medicine
PROC: 3E0234Z Introduction of Serum, Toxoid and Vaccine into Muscle, Percutaneous Approach (ICD-10-PCS; principal; 2019-11-26)
DX: K85.20 Alcohol induced acute pancreatitis without necrosis or infection (principal); F17.210 Nicotine dependence, cigarettes, uncomplicated; D72.829 Elevated white blood cell count, unspecified; F10.20 Alcohol dependence, uncomplicated; I10 Essential (primary) hypertension; R74.0 Nonspecific elevation of levels of transaminase and lactic acid dehydrogenase [LDH]; Z23 Encounter for immunization
CPT/HCPCS: 36415; 74176; 80053; 80305; 80320; 82150; 82948; 83690; 85025; 87081; 90732; 99285; G0378; J1170; J1644; J1815; J2060; J2270; J2405; J3411; J7030